=== PATIENT | male | born 1990 | race Two or more races ===

== ENCOUNTER 2018-03-10 17:12 | Emergency (ER) | payer MEDICAID ==
[~2018-03-10] VITALS: Ht 160 cm; Wt 99.8 kg
[2018-03-10 17:54] VITALS: BP 117/72
[2018-03-10 18:05] LABS: APPEARANCE,URINE CLEAR; BILIRUBIN, URINE NEGATIVE (NEGATIVE); COLOR,URINE PALE YELLOW; GLUCOSE, URINE (UA) NEGATIVE (NEGATIVE); KETONES,URINE NEGATIVE (NEGATIVE); LEUKOCYTE ESTERASE ,URINE NEGATIVE (NEGATIVE); NITRITE,URINE NEGATIVE (NEGATIVE); PH,URINE 6.5 (4.5-8.0); PROTEIN,URINE NEGATIVE (NEGATIVE); UROBILINOGEN,URINE NORMAL MG/DL (0.0-1.0)
[2018-03-10] MEDS ORDERED: Azithromycin 250mg tab ORAL ONE (18:45)
[2018-03-10] MEDS ORDERED: Azithromycin 250mg tab ONE (18:50)
[2018-03-10] MEDS ORDERED: VIBRAMYCIN100 MG ORAL (18:55)
--- NOTE | 2018-03-10 18:55 | Emergency Room Report ---
History of Present Illness General Chief Complaint: Male Urogenital Problems Source: Patient Present Illness HPI 27-year-old male presents to the emergency department complaining of 6 out of 10 in severity dysuria with right-sided abdominal pain x 1 week. Reports bilateral flank pain that has been on-going x several months Patient also reports sensation of possible hernia in the left testicle due to intermittent dull ache /fullness exacerbated when lifting heavy objects x 1 year. Patient denies fevers, chills, nausea, vomiting, abdominal tenderness, constipation or diarrhea. Patient denies recent travel. Patient denies hematuria he denies penile discharge, testicular swelling or swollen tender lymph nodes. Patient denies joint pain, genital lesions or rashes. Patient also reports recent unprotected intercourse with several prostitutes. Allergies: Coded Allergies: No Known Allergies (Unverified , 03/10/18) Patient History Past Medical History: see triage record Past Surgical History: none Pertinent Family History: none Reviewed Nursing Documentation: PMH: Agreed; PSxH: Agreed Nursing Documentation-PMH Past Medical History: No Stated History Review of Systems All Other Systems: negative except mentioned in HPI Physical Exam Vital Signs Date Time Temp Pulse Resp B/P (MAP) Pulse Ox O2 Delivery O2 Flow Rate FiO2 03/10/18 17:16 98.3 73 16 117/72 97 Room Air 98.2 Sp02 EP Interpretation: reviewed, normal General Appearance: no apparent distress, alert, GCS 15, non-toxic Head: normocephalic, atraumatic Eyes: bilateral eye normal inspection, bilateral eye PERRL ENT: hearing grossly normal, normal voice Neck: full range of motion Respiratory: lungs clear, normal breath sounds, speaking full sentences Cardiovascular #1: regular rate, rhythm Gastrointestinal: normal bowel sounds, non tender, soft Rectal: deferred Genitourinary: normal inspection, no CVA tenderness, penis normal, scrotum normal, other - cremasteric reflexex intact bilaterally, no visible swelling or erythema, no penile d/c, and negative phren's (makes no difference) Musculoskeletal: back normal, gait/station normal, normal range of motion, non- tender Neurologic: alert, oriented x3, responsive, motor strength/tone normal, sensory intact, normal gait, speech normal, grossly normal Psychiatric: judgement/insight normal Skin: normal color, no rash, warm/dry, well hydrated Lymphatic: no adenopathy Medical Decision Making PA Attestation Dr. Pryor is my supervising Physician whom patient management has been discussed with. Diagnostic Impression: Primary Impression: Urethritis ER Course 27-year-old male presents to the emergency department complaining of 6 out of 10 in severity dysuria with right-sided abdominal pain x 1 week. Reports bilateral flank pain that has been on-going x several months Patient also reports sensation of possible hernia in the left testicle due to intermittent dull ache /fullness exacerbated when lifting heavy objects x 1 year. Patient denies fevers, chills, nausea, vomiting, abdominal tenderness, constipation or diarrhea. Patient denies recent travel. Patient denies hematuria he denies penile discharge, testicular swelling or swollen tender lymph nodes. Patient denies joint pain, genital lesions or rashes. Patient also reports recent unprotected intercourse with several prostitutes. Ddx considered but are not limited to renal stone, UTi , Urethritis, LGV, STI, Stone, Cystitis, prostatitis, epididymitis, testicular torsion, inguinal hernia or hydrocele just to name a few [employer] Representative for PE was: Makayla HERBERT Vital signs: are WNL, pt. is afebrile H&PE are most consistent with Urethritis- Clinically I do not suspect torsion at this time cremasteric reflex is intact patient does not have any testicular tenderness upon palpation, Phren sign is also negative. I do not palpate obvious hernia in the inguinal canal, patient is in no acute distress and nontoxic in appearance no evidence of penile discharge, rashes, lesions or palpable lymph nodes. CVA tenderness. ORDERS: - UA : Unremarkable ED INTERVENTIONS: - 1g Azithromycin DISCHARGE: At this time pt. is stable for d/c to home. Will provide printed patient care instructions, and any necessary prescriptions. Care plan and follow up instructions have been discussed with the patient prior to discharge. Labs Test 03/10/18 17:15 Urine Color Pale yellow Urine Appearance Clear Urine pH 6.5 (4.5-8.0) Urine Specific [place] 1.015 (1.005-1.035) Urine Protein Negative (NEGATIVE) Urine Glucose (UA) Negative (NEGATIVE) Urine Ketones Negative (NEGATIVE) Urine Blood Negative (NEGATIVE) Urine Nitrite Negative (NEGATIVE) Urine Bilirubin Negative (NEGATIVE) Urine Urobilinogen Normal MG/DL (0.0-1.0) Urine Leukocyte Esterase Negative (NEGATIVE) Last Vital Signs Date Time Temp Pulse Resp B/P (MAP) Pulse Ox O2 Delivery O2 Flow Rate FiO2 03/10/18 17:54 98.2 68 16 117/72 97 Room Air 98.2 Disposition: HOME, SELF-CARE Condition: Stable Scripts Doxycycline Hyclate* (VIBRAMYCIN*) 100 Mg Capsule 100 MG ORAL EVERY 12 HOURS for 7 Days, #14 CAP 0 Refills Prov: Hali Ferreira 03/10/18 Patient Instructions: Urethritis, Adult, Epididymitis Additional Instructions: Take medications as directed. Follow up with a Primary Care Provider in 3-5 days, even if your symptoms have resolved. --Please review list of primary care clinics, if you do not already have a primary care provider Return sooner to ED if new symptoms occur, or current symptoms become worse. - Please note that this Emergency Department Report was dictated using [employer] technology software, occasionally this can lead to erroneous entry secondary to interpretation by the dictation equipment. Hali Ferreira Mar 10, 2018 18:55
[2018-03-10 19:20] VITALS: BP 117/72
== END 2018-03-10 19:10 | disposition home or self-care (01) ==
LOC: EMR 17:30
DX: N34.2 Other urethritis (principal)
CPT/HCPCS: 81003; 99283; Q0144